=== PATIENT | male | born 1975 | race African-American/Black ===

== ENCOUNTER 2023-10-16 08:46 | Inpatient (IN) | payer OTHER ==
[2023-10-16] MEDS ORDERED: ALBUTEROL SO4 2.5/IPRATROPIUM 0.5 INH SOL 3 ML VIAL.NEB. NEB ONE ×5 (09:51→12:38)
[2023-10-16 10:03] LABS: BASO % 0.6 % (0-2.0); EOS % 1.6 % (0-4.5); HEMATOCRIT 49.6 % (35.4-49); HEMOGLOBIN 16.4 GM/dL (11.7-16.9); LYMPH % 30.1 % (8-40); MCH 29.7 pg (25.7-33.7); MEAN PLT VOLUME 8.1 fl (7.5-11.1); MONO % 10.3 % (3.8-10.2); NEUT % 57.4 % (42.8-82.8); PLATELET COUNT 154 10^3/uL (134-434); RBC 5.52 M/mm3 (4.00-5.60); RDW 15.4 % (11.9-15.9); WHITE BLOOD COUNT 8.4 K/mm3 (4.0-10.0)
[2023-10-16 10:09] LABS: INR 1.31 (0.83-1.09); PROTHROMBIN TIME (PATIENT) 15.1 SEC (9.7-13.0)
[2023-10-16 10:11] LABS: ACTIVATED PTT 32.5 SECONDS (25.2-36.5)
[2023-10-16 10:27] LABS: POTASSIUM 4.6 mmol/L (3.5-5.1)
[2023-10-16 10:30] LABS: ALBUMIN 3.3 g/dl (3.4-5.0); BLOOD UREA NITROGEN 12.4 mg/dL (7-18); CALCIUM 8.5 mg/dL (8.5-10.1)
[2023-10-16 10:33] LABS: CREATININE 0.9 mg/dL (0.55-1.3)
[2023-10-16 10:34] LABS: BILIRUBIN,TOTAL 0.7 mg/dL (0.2-1)
[2023-10-16 10:35] LABS: TOT PROT 6.6 g/dl (6.4-8.2)
[2023-10-16 10:38] LABS: N-TERMINAL BNP 148.2 pg/ml (5-125)
[2023-10-16] MEDS: NICOTINE 7 MG/24 HOURS TOPICAL PATCH TD SCH (11:13)
[2023-10-16] MEDS ORDERED: methylPREDNISolone NA SUCC 125 MG/2 ML VIAL IVPB ONE (12:19)
[2023-10-16] MEDS ORDERED: methylPREDNISolone NA SUCC 125 MG/2 ML VIAL ONE (12:38)
[2023-10-16 13:06] LABS: URINE APPEARANCE CLEAR; URINE BILIRUBIN NEGATIVE (NEGATIVE); URINE COLOR YELLOW; URINE GLUCOSE (UA) NEGATIVE (NEGATIVE); URINE KETONE NEGATIVE (NEGATIVE); URINE LEUK ESTERASE NEGATIVE (NEGATIVE); URINE NITRITE NEGATIVE (NEGATIVE); URINE PROTEIN NEGATIVE (NEGATIVE)
[2023-10-16 13:42] LABS: PHENCYCLIDINE,URINE NEGATIVE (NEGATIVE)
[2023-10-16 13:43] LABS: COCAINE, UR NEGATIVE (NEGATIVE); METHADONE, UR NEGATIVE (NEGATIVE); OPIATES, URI NEGATIVE (NEGATIVE); URINE AMPHETAMINES NEGATIVE (NEGATIVE); URINE BARBITURATES NEGATIVE (NEGATIVE); URINE BENZODIAZEPINES NEGATIVE (NEGATIVE)
[2023-10-16] MEDS ORDERED: ALBUTEROL SO4 0.083% IH SOL 2.5 MG/3 ML VIAL.NEB. NEB PRN (13:43)
[2023-10-16] MEDS ORDERED: AZITHROMYCIN IVPB 500 MG in DEXTROSE 5%-WATER - 250 ML IVPB ONE (14:30)
[2023-10-16] MEDS: ALBUTEROL SO4 2.5/IPRATROPIUM 0.5 INH SOL 3 ML VIAL.NEB. NEB SCH ×4 (15:23→23:36)
[2023-10-16 15:59] VITALS: BMI 45.9
[2023-10-16] MEDS ORDERED: amLODIPine BESYLATE 10 MG TABLET (FP) PO SCH (16:30)
[2023-10-16] MEDS ORDERED: hydrALAZINE HCL 20 MG/ML VIAL IVPUSH PRN (16:30)
[2023-10-16] MEDS: methylPREDNISolone NA SUCC 40 MG/1 ML VIAL IVPUSH SCH (17:16)
[2023-10-16] MEDS: BUDESONIDE/FORMETEROL FUMARATE 160/4.5 mcg INHALER IH SCH (21:38)
[2023-10-16] MEDS: DOXYCYCLINE INJECTION 100 MG in DEXTROSE 5%-WATER 100 ML IVPB SCH (21:39)
[2023-10-16] MEDS ORDERED: ARIPiprazole 10 MG TABLET PO SCH (22:00)
[2023-10-16] MEDS ORDERED: DOXYCYCLINE INJECTION 100 MG in DEXTROSE 5%-WATER 100 ML IVPB SCH (22:00)
[2023-10-17] MEDS: methylPREDNISolone NA SUCC 40 MG/1 ML VIAL IVPUSH SCH ×2 (01:02→10:33)
[2023-10-17] MEDS: ALBUTEROL SO4 2.5/IPRATROPIUM 0.5 INH SOL 3 ML VIAL.NEB. NEB SCH ×3 (04:56→11:08)
[2023-10-17 07:00] LABS: HEMATOCRIT 52.9 % (35.4-49); HEMOGLOBIN 17.2 GM/dL (11.7-16.9); MCH 29.8 pg (25.7-33.7); MCHC 32.4 g/dl (32.0-35.9); MEAN CELL VOLUME 91.9 fl (80-96); MEAN PLT VOLUME 9.3 fl (7.5-11.1); PLATELET COUNT 175 10^3/uL (134-434); RBC 5.76 M/mm3 (4.00-5.60); RDW 15.6 % (11.9-15.9); WHITE BLOOD COUNT 20.7 K/mm3 (4.0-10.0)
[2023-10-17 07:22] LABS: POTASSIUM 4.2 mmol/L (3.5-5.1)
[2023-10-17 07:28] LABS: CALCIUM 9.1 mg/dL (8.5-10.1)
[2023-10-17 07:29] LABS: MAGNESIUM 2.3 mg/dL (1.8-2.4)
[2023-10-17 07:30] LABS: ALBUMIN 3.6 g/dl (3.4-5.0); BLOOD UREA NITROGEN 17.4 mg/dL (7-18)
[2023-10-17 07:34] LABS: TOT PROT 7.5 g/dl (6.4-8.2)
[2023-10-17 07:35] LABS: BILIRUBIN,TOTAL 0.9 mg/dL (0.2-1)
[2023-10-17 09:09] LABS: ANISOCYTOSIS 0; MACROCYTOSIS 0
[2023-10-17] MEDS ORDERED: ENOXAPARIN NA (PORCINE) 40 MG/0.4 ML DISP.SYRIN SQ SCH (10:00)
[2023-10-17] MEDS ORDERED: NIFEdipine E.R. 30 MG TABLET PO SCH (10:00)
[2023-10-17] MEDS ORDERED: AZITHROMYCIN IVPB 250 MG in DEXTROSE 5%-WATER - 250 ML IVPB SCH (10:00)
[2023-10-17] MEDS ORDERED: predniSONE 20 MG TABLET (UD) PO SCH (10:00)
[2023-10-17] MEDS ORDERED: FUROSEMIDE 20 MG TABLET (FP) PO SCH (10:00)
[2023-10-17] MEDS: DOXYCYCLINE INJECTION 100 MG in DEXTROSE 5%-WATER 100 ML IVPB SCH (10:34)
[2023-10-17] MEDS: NICOTINE 7 MG/24 HOURS TOPICAL PATCH TD SCH (10:34)
[2023-10-17] MEDS: BUDESONIDE/FORMETEROL FUMARATE 160/4.5 mcg INHALER IH SCH (14:06)
[2023-10-17 14:45] LABS: ARTERIAL BLD GAS O2 SATURATION 94.1 % (95-98); ARTERIAL BLOOD GAS BASE EXCESS 3.4 mmol/L (-2-2); ARTERIAL BLOOD GAS PO2 68.9 mmHg (80-100); ARTERIAL BLOOD GAS pH 7.423 (7.350-7.450)
[2023-10-17 14:48] LABS: ALLENS TEST POSITIVE; PT'S TEMP N; VENT MODE N; VENT RATE N
[2023-10-17 16:32] VITALS: BP 144/80; PULSE 94; RESP 20; TEMP 97.5
== END 2023-10-17 14:25 | disposition home or self-care (01) | DRG 141 ==
LOC: JER 08:46 → JERBED 12:20 → J4W 14:56
PROVIDERS: ADMIT Internal Medicine; ATTEND Internal Medicine
DX: J45.31 Mild persistent asthma with (acute) exacerbation (principal); I16.0 Hypertensive urgency; F25.9 Schizoaffective disorder, unspecified; R00.1 Bradycardia, unspecified; F17.210 Nicotine dependence, cigarettes, uncomplicated; G47.33 Obstructive sleep apnea (adult) (pediatric); E66.01 Morbid (severe) obesity due to excess calories; Z68.42 Body mass index [BMI] 45.0-49.9, adult; F10.10 Alcohol abuse, uncomplicated; R09.02 Hypoxemia; R06.89 Other abnormalities of breathing; I44.39 Other atrioventricular block
CPT/HCPCS: 0241U-QW; 36415; 36600; 71045-TC-FY; 80053; 80061; 80307; 81003; 82803; 83036; 83690; 83735; 83880; 84484; 85025; 85610; 85730; 87086; 93005; 93010; 93306-TC; 94640; 94660; 99285-25

== ENCOUNTER 2023-12-15 16:18 | Emergency (ER) | payer OTHER ==
[2023-12-15 16:24] VITALS: BP 159/92; PULSE 88; RESP 18; TEMP 97.8; BMI 47.9
[2023-12-15] MEDS ORDERED: ALBUTEROL SO4 2.5/IPRATROPIUM 0.5 INH SOL 3 ML VIAL.NEB. NEB ONE ×2 (17:26→17:35)
[2023-12-15] MEDS ORDERED: MAGNESIUM SULFATE IN WATER 2 GM/50 ML IVPB IVPB ONE ×2 (17:27→17:35)
== END 2023-12-15 18:45 | disposition home or self-care (01) ==
LOC: JER 16:18
PROC: 3E033GC Introduction of Other Therapeutic Substance into Peripheral Vein, Percutaneous Approach (ICD-10-PCS; principal; 2023-12-15)
PROC: 3E0F7GC Introduction of Other Therapeutic Substance into Respiratory Tract, Via Natural or Artificial Opening (ICD-10-PCS; 2023-12-15)
DX: R06.02 Shortness of breath (principal); Z20.822 Contact with and (suspected) exposure to COVID-19
CPT/HCPCS: 0241U-QW; 71045-TC-FY; 93005; 93010; 99285-25

== ENCOUNTER 2023-12-17 12:28 | Emergency (ER) | payer OTHER ==
[2023-12-17 13:32] VITALS: BP 164/111; PULSE 95; RESP 22; TEMP 99; BMI 47.9
[2023-12-17] MEDS ORDERED: ALBUTEROL SO4 2.5/IPRATROPIUM 0.5 INH SOL 3 ML VIAL.NEB. NEB ONE ×2 (13:35→13:38)
[2023-12-17] MEDS ORDERED: DEXAMETHASONE SOD PHOSPHATE 10 MG/1 ML VIAL ONE (13:35)
[2023-12-17] MEDS: ALBUTEROL SO4 2.5/IPRATROPIUM 0.5 INH SOL 3 ML VIAL.NEB. NEB ONE (13:51)
[2023-12-17] MEDS: DEXAMETHASONE SOD PHOSPHATE 10 MG/1 ML VIAL IM ONE (13:51)
[2023-12-17] MEDS ORDERED: FUROSEMIDE 40 MG/4 ML INJECTABLE VIAL IVPUSH SCH (15:30)
== END 2023-12-17 16:41 | disposition left against medical advice (07) ==
LOC: JER 12:28
PROC: 3E023GC Introduction of Other Therapeutic Substance into Muscle, Percutaneous Approach (ICD-10-PCS; principal; 2023-12-17)
PROC: 3E0F7GC Introduction of Other Therapeutic Substance into Respiratory Tract, Via Natural or Artificial Opening (ICD-10-PCS; 2023-12-17)
DX: R06.02 Shortness of breath (principal); R05.9 Cough, unspecified; J45.31 Mild persistent asthma with (acute) exacerbation; Z20.822 Contact with and (suspected) exposure to COVID-19
CPT/HCPCS: 0241U-QW; 71046-TC-FY; 94640; 96372; 99284-25; J1100

== ENCOUNTER 2023-12-24 18:38 | Inpatient (IN) | payer OTHER ==
[2023-12-24 19:11] VITALS: BMI 47.9
[2023-12-24] MEDS ORDERED: ALBUTEROL SO4 2.5/IPRATROPIUM 0.5 INH SOL 3 ML VIAL.NEB. NEB ONE (20:31)
[2023-12-24] MEDS: ALBUTEROL SO4 2.5/IPRATROPIUM 0.5 INH SOL 3 ML VIAL.NEB. NEB ONE (20:35)
[2023-12-24] MEDS ORDERED: methylPREDNISolone NA SUCC 125 MG/2 ML VIAL ONE (20:35)
[2023-12-24] MEDS: methylPREDNISolone NA SUCC 125 MG/2 ML VIAL IVPUSH ONE (20:41)
[2023-12-24 21:00] LABS: VENOUS PH 7.249 (7.310-7.410)
[2023-12-24 21:01] LABS: VENOUS BASE EXCESS 3.8 mmol/L (-2-2); VENOUS PCO2 80.9 mmHg (38-52)
[2023-12-24 21:02] LABS: BASO % 0.5 % (0-2.0); HEMATOCRIT 47.9 % (35.4-49); HEMOGLOBIN 15.9 GM/dL (11.7-16.9); LYMPH % 32.4 % (8-40); MCHC 33.3 g/dl (32.0-35.9); MEAN CELL VOLUME 90.2 fl (80-96); MEAN PLT VOLUME 8.5 fl (7.5-11.1); MONO % 10.5 % (3.8-10.2); NEUT % 54.6 % (42.8-82.8); PLATELET COUNT 166 10^3/uL (134-434); RBC 5.31 M/mm3 (4.00-5.60); RDW 15.9 % (11.9-15.9)
[2023-12-24 21:20] LABS: POTASSIUM 4.3 mmol/L (3.5-5.1)
[2023-12-24 21:23] LABS: ALBUMIN 3.3 g/dl (3.4-5.0); BLOOD UREA NITROGEN 17.3 mg/dL (7-18); CALCIUM 8.6 mg/dL (8.5-10.1)
[2023-12-24 21:28] LABS: BILIRUBIN,TOTAL 0.3 mg/dL (0.2-1); TOT PROT 6.5 g/dl (6.4-8.2)
[2023-12-24 21:31] LABS: N-TERMINAL BNP 162.1 pg/ml (5-125)
[2023-12-25 00:18] LABS: URINE APPEARANCE CLEAR; URINE BILIRUBIN NEGATIVE (NEGATIVE); URINE COLOR YELLOW; URINE GLUCOSE (UA) NEGATIVE (NEGATIVE); URINE KETONE NEGATIVE (NEGATIVE); URINE LEUK ESTERASE NEGATIVE (NEGATIVE); URINE NITRITE NEGATIVE (NEGATIVE); URINE PROTEIN NEGATIVE (NEGATIVE); URINE UROBILINOGEN 0.2 mg/dL (0.2-1.0)
[2023-12-25] MEDS ORDERED: AZITHROMYCIN 500 MG TABLET ONE (00:49)
[2023-12-25] MEDS: AZITHROMYCIN 250 MG TABLET PO ONE (00:53)
[2023-12-25] MEDS: BUDESONIDE/FORMETEROL FUMARATE 80/4.5 mcg INHALER IH SCH (01:08)
[2023-12-25] MEDS: methylPREDNISolone NA SUCC 40 MG/1 ML VIAL IVPUSH SCH (01:42)
[2023-12-25] MEDS: ALBUTEROL SO4 2.5/IPRATROPIUM 0.5 INH SOL 3 ML VIAL.NEB. NEB SCH (07:48)
[2023-12-25] MEDS ORDERED: ALBUTEROL SO4 HFA INHALER IH PRN (08:12)
[2023-12-25] MEDS ORDERED: amLODIPine BESYLATE 5 MG TABLET (FP) PO SCH (10:00)
[2023-12-25 10:21] LABS: BASO % 0.3 % (0-2.0); EOS % 0.1 % (0-4.5); HEMATOCRIT 52.3 % (35.4-49); HEMOGLOBIN 16.7 GM/dL (11.7-16.9); LYMPH % 9.3 % (8-40); MCH 28.8 pg (25.7-33.7); MCHC 31.9 g/dl (32.0-35.9); MEAN CELL VOLUME 90.5 fl (80-96); MONO % 0.8 % (3.8-10.2); NEUT % 89.5 % (42.8-82.8); PLATELET COUNT 165 10^3/uL (134-434); RBC 5.78 M/mm3 (4.00-5.60); RDW 16.5 % (11.9-15.9); WHITE BLOOD COUNT 12.1 K/mm3 (4.0-10.0)
[2023-12-25] MEDS: NICOTINE 21 MG/24 HOURS TOPICAL PATCH TD SCH (10:46)
[2023-12-25] MEDS: ENOXAPARIN NA (PORCINE) 40 MG/0.4 ML DISP.SYRIN SQ SCH (10:46)
[2023-12-25] MEDS: HYDROCHLOROTHIAZIDE 12.5 MG CAPSULE (FP) PO SCH (10:46)
[2023-12-25 11:41] LABS: CHOLESTEROL 136 mg/dL (50-200)
[2023-12-25 11:42] LABS: LDL CHOLESTEROL (ONLY SJRH) 77 mg/dL (5-100)
[2023-12-25 11:44] LABS: HDL CHOLESTEROL 55 mg/dL (40-60)
[2023-12-25 11:46] LABS: POTASSIUM 4.6 mmol/L (3.5-5.1)
[2023-12-25 11:48] LABS: CALCIUM 9.6 mg/dL (8.5-10.1)
[2023-12-25 11:49] LABS: ALBUMIN 3.4 g/dl (3.4-5.0); MAGNESIUM 2.4 mg/dL (1.8-2.4)
[2023-12-25 11:52] LABS: PHOSPHOROUS 2.3 mg/dL (2.5-4.9)
[2023-12-25 11:54] LABS: BILIRUBIN,TOTAL 0.5 mg/dL (0.2-1); TOT PROT 7.1 g/dl (6.4-8.2)
[2023-12-25] MEDS: FUROSEMIDE 40 MG TABLET (FP) PO ONE (12:57)
[2023-12-25 14:24] LABS: ARTERIAL BLD GAS O2 SATURATION 90.2 % (95-98); ARTERIAL BLOOD GAS PO2 58.7 mmHg (80-100); ARTERIAL BLOOD GAS pH 7.405 (7.350-7.450)
[2023-12-25 14:28] LABS: ALLENS TEST POSITIVE
[2023-12-25 15:18] LABS: METHADONE, UR NEGATIVE (NEGATIVE); OPIATES, URI NEGATIVE (NEGATIVE); URINE AMPHETAMINES NEGATIVE (NEGATIVE)
[2023-12-25 15:19] LABS: PHENCYCLIDINE,URINE NEGATIVE (NEGATIVE); URINE BARBITURATES NEGATIVE (NEGATIVE); URINE BENZODIAZEPINES NEGATIVE (NEGATIVE)
[2023-12-25 15:21] LABS: COCAINE, UR NEGATIVE (NEGATIVE)
[2023-12-25 22:11] VITALS: RESP 21
[2023-12-25] MEDS: ARIPiprazole 10 MG TABLET PO SCH (22:42)
[2023-12-25] MEDS: LISINOPRIL 10 MG TABLET PO SCH (22:42)
[2023-12-26 06:54] VITALS: BP 144/97; TEMP 97.1
[2023-12-26 07:34] VITALS: PULSE 91
[2023-12-26] MEDS ORDERED: AZITHROMYCIN 250 MG TABLET PO SCH (10:00)
== END 2023-12-26 07:50 | disposition left against medical advice (07) | DRG 140 ==
LOC: JER 18:38 → JERBED 21:44 → J5S 12-25 01:33
PROVIDERS: ADMIT Internal Medicine
DX: J44.1 Chronic obstructive pulmonary disease with (acute) exacerbation (principal); J96.21 Acute and chronic respiratory failure with hypoxia; E87.20 Acidosis, unspecified; J96.22 Acute and chronic respiratory failure with hypercapnia; E66.2 Morbid (severe) obesity with alveolar hypoventilation; F25.9 Schizoaffective disorder, unspecified; Z68.42 Body mass index [BMI] 45.0-49.9, adult; F17.210 Nicotine dependence, cigarettes, uncomplicated; I10 Essential (primary) hypertension
CPT/HCPCS: 0241U-QW; 36415; 36600; 71045-TC-FY; 80053; 80061; 80307; 81003; 82803; 83735; 83880; 84100; 84484; 85025; 93005; 93010; 93970-TC; 94640; 94660; 99285-25